=== PATIENT | male | born 1970 | race Caucasian/White ===

== ENCOUNTER → 2016-05-08 | Outpatient (CLI) | payer MEDICAID ==
[2016-05-08 17:14] LABS: HEMOGLOBIN 15.9 g/dL (14.1-18.0); LYMPH # 0.9 K/mm3 (0.7-4.5); LYMPH % 19.3 % (10-50)
[2016-05-08 17:54] LABS: AMPHETAMINES/METAMPHETAMINES POSITIVE ng/mL (<1000)
[2016-05-08 18:37] LABS: BUN 14 mg/dL (7-18)
[2016-05-08 18:38] LABS: GFR (ESTIMATED) 80 ML/MIN (>60)
--- NOTE | 2016-05-09 08:18 | RADIOLOGY REPORT PS360 ---
CHEST(2 VIEWS-NOT PORTABLE) HISTORY: COUGH COMPARISON: None available FINDINGS: The cardiomediastinal silhouette and pulmonary vascularity are within normal limits. No lobar consolidation or collapse is evident. On the lateral view there is an 18 mm nodular opacity overlying what appears to represent the T10 vertebral body inferiorly and posteriorly. While this could be due to an overlapping bony lesion, one cannot be the possibility of pulmonary nodule facial indication history of chronic cough. Consider chest CT for more thorough evaluation. No other significant anomalies are evident. IMPRESSION: 1. Nodular opacity overlies the T10 vertebral body on the lateral view. Possible pulmonary nodule versus bony lesion. Suggest CT for further evaluation. 2. Otherwise negative
[2016-05-09 14:07] LABS: HEPATITIS A VIRUS ANTIBODY REACTIVE (NON-REACTIVE); HEPATITIS B SURFACE ANTIG NON-REACTIVE (NON-REACTIVE)
== END ==
LOC: LAB 15:34
PROVIDERS: Emergency Medicine
DX: R05 Cough (principal); Z00.00 Encounter for general adult medical examination without abnormal findings